=== PATIENT | female | born 1950 | race African-American/Black ===

== ENCOUNTER 2017-05-16 13:04 | Emergency (ER) | payer MEDICARE, MEDICAID ==
[~2017-05-16] VITALS: Ht 170.2 cm; Wt 84.0 kg
[~2017-05-16 13:04] MED LIST: AM10 PO; AMLO5TAB4 PO; ASPI-1159 PO; ATOR-2 PO; DIPH25CA83 PO; NITR0.4T49 SL
[2017-05-16 13:10] VITALS: BP 147/93
== END 2017-05-16 15:07 | disposition home or self-care (01) ==
LOC: ER 13:04
DX: S90.562A Insect bite (nonvenomous), left ankle, initial encounter (principal); L03.818 Cellulitis of other sites; I10 Essential (primary) hypertension; F17.200 Nicotine dependence, unspecified, uncomplicated; Z79.82 Long term (current) use of aspirin; Z90.710 Acquired absence of both cervix and uterus; Z90.49 Acquired absence of other specified parts of digestive tract; W57.XXXA Bitten or stung by nonvenomous insect and other nonvenomous arthropods, initial encounter; Y93.89 Activity, other specified; Y92.89 Other specified places as the place of occurrence of the external cause; Y99.8 Other external cause status
CPT/HCPCS: 99283

== ENCOUNTER 2017-10-09 13:05 | Inpatient (IN) | payer MEDICARE, MEDICAID ==
[~2017-10-09] VITALS: Ht 170.2 cm; Wt 89.5 kg
[~2017-10-09 13:05] MED LIST changes: -AMLO5TAB4 PO
[2017-10-09 15:23] LABS: BASOPHILS % 0.4 % (0.0-2.0); EOSINOPHILS % 1.4 % (0.0-5.0); HEMATOCRIT. 41.2 % (36.0-48.0); HEMOGLOBIN. 14.2 g/dL (12.0-16.0); LYMPHOCYTES % 27.6 % (20.0-50.0); MEAN CORPUSCULAR HEMOGLOBIN 28.6 pg (28.0-32.0); MEAN CORPUSCULAR VOLUME 82.7 fL (81.0-99.0); MEAN PLATELET VOLUME 7.6 fl (7.4-10.4); MONOCYTES % 5.9 % (2.0-8.0); NEUTROPHILS % 64.7 % (40.0-76.0); PLATELET 293 x1000/uL (130-400); RED BLOOD CELL COUNT 4.98 mill/uL (4.2-5.4); RED CELL DISTRIBUTION WIDTH 14.9 % (11.6-14.6)
[2017-10-09 15:29] LABS: CHLORIDE 104 mEq/L (98-107)
[2017-10-09 15:32] LABS: PROTHROMBIN TIME 10.8 sec (9.4-11.6)
[2017-10-09 15:37] LABS: CREATINE KINASE 132 IU/L (26-192)
[2017-10-09 15:40] LABS: CREATINE KINASE MB FRACTION 0.7 ng/mL (0.5-3.6)
[2017-10-09 21:10] VITALS: BP 142/82
[2017-10-09] MEDS: ACETAMINOPHEN 325MG TABLET PO PRN (21:27)
[2017-10-09] MEDS ORDERED: ONDANSETRON HCL 4MG/2ML VIAL IV PRN (21:30)
[2017-10-09] MEDS ORDERED: LORAZEPAM 2MG/ML CPJ IV PRN (21:30)
[2017-10-09] MEDS ORDERED: MAGNESIUM/ALUMINUM HYDROXIDE/SIMETHICONE 30ML UDC PO PRN (21:30)
[2017-10-09] MEDS: ASPIRIN 81MG EC TABLET PO SCH (21:44)
[2017-10-09 22:06] VITALS: BP 142/82
[2017-10-09] MEDS: DIPHENHYDRAMINE 25MG CAPSULE PO PRN (22:41)
[2017-10-09] MEDS: AMITRIPTYLINE 10MG TABLET PO SCH (22:41)
[2017-10-09] MEDS ORDERED: OMEP20CA10 PO (23:02)
[2017-10-09] MEDS ORDERED: AMLO2.5T45 PO (23:02)
[2017-10-09] MEDS ORDERED: SIMV20TA6 PO (23:02)
[2017-10-09] MEDS: ENOXAPARIN 40MG/0.4ML SYR SUBCUT SCH (23:41)
[2017-10-10] VITALS: BP 110/61
[2017-10-10 00:38] LABS: CREATINE KINASE MB FRACTION 0.6 ng/mL (0.5-3.6)
[2017-10-10 04:00] VITALS: BP 119/69
[2017-10-10 07:44] LABS: CREATINE KINASE MB FRACTION 0.7 ng/mL (0.5-3.6)
[2017-10-10 08:00] VITALS: BP 115/57
[2017-10-10 12:00] VITALS: BP 115/57
[2017-10-10] MEDS: ACETAMINOPHEN 325MG TABLET PO PRN (12:59)
[2017-10-10 16:09] LABS: CLARITY URINE CLEAR (CLEAR); COLOR URINE YELLOW (YELLOW); KETONES URINE NEGATIVE (NEGATIVE); LEUKOCYTE ESTERASE URINE NEGATIVE (NEGATIVE); NITRITE URINE NEGATIVE (NEGATIVE); OCCULT BLOOD URINE 1+ (NEGATIVE); PH URINE 6.5 (4.5-8.0); PROTEIN URINE NEGATIVE (NEGATIVE); SPECIFIC GRAVITY URINE 1.007 (1.005-1.030); UROBILINOGEN URINE 0.2 E.U./dL (0.2-1.0)
[2017-10-10 17:08] LABS: *AMPHETAMINES SCREEN URINE NEGATIVE (NEGATIVE); *BARBITURATES SCREEN URINE NEGATIVE (NEGATIVE); *BENZODIAZEPINES SCREEN URINE NEGATIVE (NEGATIVE); *COCAINE SCREEN URINE NEGATIVE (NEGATIVE); METHADONE URINE SCREEN NEGATIVE (NEGATIVE)
[2017-10-10 17:10] LABS: CANNABINOID URINE SCREEN NEGATIVE (NEGATIVE); OPIATES URINE SCREEN NEGATIVE (NEGATIVE); PHENCYCLIDINE URINE SCREEN NEGATIVE (NEGATIVE)
[2017-10-10] MEDS: NICOTINE 14MG PATCH TD SCH (18:08)
[2017-10-10 20:00] VITALS: BP 136/81
[2017-10-10] MEDS: AMITRIPTYLINE 10MG TABLET PO SCH (20:59)
[2017-10-10] MEDS: ASPIRIN 81MG EC TABLET PO SCH (20:59)
[2017-10-10] MEDS: HYDROMORPHONE HCL/PF 2MG/ML CPJ IV PRN (21:00)
[2017-10-10] MEDS: ENOXAPARIN 40MG/0.4ML SYR SUBCUT SCH (21:05)
[2017-10-10] MEDS: DIPHENHYDRAMINE 25MG CAPSULE PO PRN (23:42)
[2017-10-11] VITALS: BP 154/75
[2017-10-11] MEDS: IPRATROPIUM/ALBUTEROL 0.5-3(2.5)MG/3ML NEB HHN SCH ×4 (00:44→11:06)
[2017-10-11 04:00] VITALS: BP 136/84
[2017-10-11 07:23] LABS: BASOPHILS % 0.3 % (0.0-2.0); HEMATOCRIT. 39.6 % (36.0-48.0); HEMOGLOBIN. 13.3 g/dL (12.0-16.0); LYMPHOCYTES % 32.5 % (20.0-50.0); MEAN CORPUSCULAR HEMOGLOBIN 27.9 pg (28.0-32.0); MEAN CORPUSCULAR VOLUME 83.2 fL (81.0-99.0); MEAN PLATELET VOLUME 8.5 fl (7.4-10.4); MONOCYTES % 7.2 % (2.0-8.0); PLATELET 264 x1000/uL (130-400); RED BLOOD CELL COUNT 4.75 mill/uL (4.2-5.4); RED CELL DISTRIBUTION WIDTH 14.8 % (11.6-14.6)
[2017-10-11 07:44] LABS: CHLORIDE 104 mEq/L (98-107)
[2017-10-11 07:50] LABS: PHOSPHORUS 3.6 mg/dL (2.5-4.9)
[2017-10-11 08:00] VITALS: BP 138/82
[2017-10-11] MEDS: NICOTINE 14MG PATCH TD SCH (08:35)
[2017-10-11] MEDS: HYDROMORPHONE HCL/PF 2MG/ML CPJ IV PRN (08:44)
[2017-10-11 11:55] VITALS: BP 116/75
[2017-10-11] MEDS ORDERED: POTASSIUM CHLORIDE 20MEQ TABLET SR PO NR (12:00)
== END 2017-10-11 13:05 | disposition home or self-care (01) | DRG 206 ==
LOC: ER 13:05 → 5WST 14:40 → EDBEDREQ 16:54 → ENRESERV 18:24
PROVIDERS: ADMIT Internal Medicine Nephrology; ATTEND Internal Medicine Nephrology
DX: M94.0 Chondrocostal junction syndrome [Tietze] (principal); D32.9 Benign neoplasm of meninges, unspecified; E78.5 Hyperlipidemia, unspecified; E87.6 Hypokalemia; E66.9 Obesity, unspecified; I10 Essential (primary) hypertension; F17.210 Nicotine dependence, cigarettes, uncomplicated; Z96.659 Presence of unspecified artificial knee joint; Z90.710 Acquired absence of both cervix and uterus; I25.2 Old myocardial infarction; Z86.011 Personal history of benign neoplasm of the brain; Z86.73 Personal history of transient ischemic attack (TIA), and cerebral infarction without residual deficits; Z88.5 Allergy status to narcotic agent; Z88.8 Allergy status to other drugs, medicaments and biological substances; Z88.6 Allergy status to analgesic agent; Z91.041 Radiographic dye allergy status; Z79.82 Long term (current) use of aspirin; Z79.899 Other long term (current) drug therapy; Z90.49 Acquired absence of other specified parts of digestive tract; Z68.30 Body mass index [BMI] 30.0-30.9, adult
CPT/HCPCS: 36415; 70551; 71045; 80048; 80053; 80061; 80305; 81003; 82550; 82553; 83690; 83735; 83880; 84100; 84443; 84484; 85025; 85610; 85730; 93005; 93880; 94640; 99285; J1170; J1650; J7620; Q0163

== ENCOUNTER → 2018-01-07 | Outpatient (CLI) | payer MEDICARE, MEDICAID ==
[~2018-01-07] MED LIST changes: +AMLO2.5T45 PO; -ATOR-2 PO; +GADOBENATE DIMEGLUMINE 529 MG/ML 10ML IV ONE; +OMEP20CA10 PO; +SIMV20TA6 PO
== END | disposition home or self-care (01) ==
LOC: MRI 08:19
PROVIDERS: ATTEND Neurological Surgery
DX: Z12.31 Encounter for screening mammogram for malignant neoplasm of breast (principal); M47.892 Other spondylosis, cervical region; G31.9 Degenerative disease of nervous system, unspecified; M25.78 Osteophyte, vertebrae
CPT/HCPCS: 70553; 72141; 77067; A9577

== ENCOUNTER → 2018-04-17 | Outpatient (CLI) | payer MEDICARE, MEDICAID ==
[~2018-04-17] MED LIST changes: +GELATIN SPONGE,ABSORBABLE 12-7MM SPONGE ONE; +METH114C3 PO; +REGADENOSON 0.4 MG/5 ML IV ONE; +[UNRECOGNIZED DRUG - OTHER] PO
== END | disposition home or self-care (01) ==
LOC: MRI 16:01
PROVIDERS: ATTEND Neurological Surgery
DX: I67.82 Cerebral ischemia (principal); R22.0 Localized swelling, mass and lump, head
CPT/HCPCS: 70553; A9577

== ENCOUNTER → 2018-04-28 | Outpatient (CLI) | payer MEDICARE, MEDICAID ==
[~2018-04-28] MED LIST changes: -GADOBENATE DIMEGLUMINE 529 MG/ML 10ML IV ONE; -GELATIN SPONGE,ABSORBABLE 12-7MM SPONGE ONE; -REGADENOSON 0.4 MG/5 ML IV ONE
== END | disposition home or self-care (01) ==
LOC: RAD 10:58
PROVIDERS: ATTEND Internal Medicine Nephrology
DX: R06.02 Shortness of breath (principal); Z90.49 Acquired absence of other specified parts of digestive tract
CPT/HCPCS: 71046

== ENCOUNTER 2018-05-19 16:10 | Inpatient (IN) | payer MEDICARE, MEDICAID ==
[~2018-05-19] VITALS: Ht 152.1 cm; Wt 92.5 kg
[~2018-05-19 16:10] MED LIST changes: -METH114C3 PO
[2018-05-19] MEDS ORDERED: CLONIDINE 0.1MG TABLET PO PRN (18:30)
[2018-05-19] MEDS ORDERED: LORAZEPAM 1MG TABLET PO PRN (18:30)
[2018-05-19] MEDS ORDERED: BISACODYL 5MG TABLET PO PRN (18:30)
[2018-05-19] MEDS ORDERED: HYDRALAZINE HCL 10MG TABLET PO PRN (18:30)
[2018-05-19] MEDS ORDERED: IPRATROPIUM/ALBUTEROL 0.5-3(2.5)MG/3ML NEB HHN PRN (18:30)
[2018-05-19] MEDS ORDERED: MAGNESIUM/ALUMINUM HYDROXIDE/SIMETHICONE 30ML UDC PO PRN (18:30)
[2018-05-19] MEDS ORDERED: ONDANSETRON HCL 4MG TABLET PO PRN (18:30)
[2018-05-19 18:40] VITALS: BP 133/74
[2018-05-19] MEDS: ACETAMINOPHEN 325MG TABLET PO PRN (19:05)
[2018-05-19 19:27] LABS: CHLORIDE 105 mEq/L (98-107)
[2018-05-19 20:00] VITALS: BP 130/65
[2018-05-19] MEDS: AMLODIPINE 5MG TABLET PO SCH (21:21)
[2018-05-19] MEDS: LEVETIRACETAM 500MG TABLET PO SCH (21:22)
[2018-05-19] MEDS: PHENYTOIN SODIUM EXTENDED 100MG CAPSULE PO SCH (23:18)
[2018-05-19] MEDS: DEXAMETHASONE 4MG TABLET PO SCH (23:18)
[2018-05-20] MEDS: ACETAMINOPHEN 325MG TABLET PO PRN ×3 (01:18→20:18)
[2018-05-20 01:44] VITALS: BP 130/65
[2018-05-20] MEDS: DEXAMETHASONE 4MG TABLET PO SCH (06:21)
[2018-05-20] MEDS: PANTOPRAZOLE 40MG DR TABLET PO SCH (06:21)
[2018-05-20] MEDS: PHENYTOIN SODIUM EXTENDED 100MG CAPSULE PO SCH ×3 (06:21→21:54)
[2018-05-20 07:36] LABS: HEMATOCRIT. 36.3 % (36.0-48.0); HEMOGLOBIN. 12.1 g/dL (12.0-16.0); MEAN CORPUSCULAR HEMOGLOBIN 27.9 pg (28.0-32.0); MEAN CORPUSCULAR VOLUME 83.6 fL (81.0-99.0); MEAN PLATELET VOLUME 8.1 fl (7.4-10.4); PLATELET 247 x1000/uL (130-400); RED BLOOD CELL COUNT 4.34 mill/uL (4.2-5.4); RED CELL DISTRIBUTION WIDTH 14.9 % (11.6-14.6)
[2018-05-20 07:44] LABS: CHLORIDE 110 mEq/L (98-107)
[2018-05-20 07:54] VITALS: BP 117/65
[2018-05-20] MEDS: AMLODIPINE 5MG TABLET PO SCH ×2 (08:29→21:51)
[2018-05-20] MEDS: DOCUSATE SODIUM 100MG CAPSULE PO SCH ×2 (08:30→16:46)
[2018-05-20] MEDS: LEVETIRACETAM 500MG TABLET PO SCH ×2 (08:30→21:51)
[2018-05-20 09:55] LABS: PLATELET ESTIMATE NORMAL
[2018-05-20] MEDS ORDERED: DEXTROSE 50% WATER 50ML SYRINGE IV PRN (18:30)
[2018-05-20 20:00] VITALS: BP 117/53
[2018-05-20] MEDS: DIPHENHYDRAMINE 25MG CAPSULE PO PRN (20:19)
[2018-05-20] MEDS: BLOOD SUGAR DIAGNOSTIC STRIP TEST SCH (21:52)
[2018-05-20] MEDS: INSULIN LISPRO 100 UNITS/ML SUBCUT SCH (21:58)
[2018-05-21 04:29] LABS: CLARITY URINE CLEAR (CLEAR); COLOR URINE YELLOW (YELLOW); KETONES URINE NEGATIVE (NEGATIVE); LEUKOCYTE ESTERASE URINE NEGATIVE (NEGATIVE); NITRITE URINE NEGATIVE (NEGATIVE); OCCULT BLOOD URINE TRACE (NEGATIVE); PH URINE 5.5 (4.5-8.0); PROTEIN URINE NEGATIVE (NEGATIVE); SPECIFIC GRAVITY URINE 1.019 (1.005-1.030); UROBILINOGEN URINE 0.2 E.U./dL (0.2-1.0)
[2018-05-21] MEDS: ACETAMINOPHEN 325MG TABLET PO PRN ×2 (04:36→11:24)
[2018-05-21] MEDS: PHENYTOIN SODIUM EXTENDED 100MG CAPSULE PO SCH ×3 (05:49→21:23)
[2018-05-21] MEDS: BLOOD SUGAR DIAGNOSTIC STRIP TEST SCH ×4 (05:49→21:25)
[2018-05-21] MEDS: PANTOPRAZOLE 40MG DR TABLET PO SCH (06:00)
[2018-05-21] MEDS: INSULIN LISPRO 100 UNITS/ML SUBCUT SCH ×4 (06:01→21:29)
[2018-05-21] MEDS ORDERED: LORAZEPAM 0.5MG TABLET PO PRN (07:45)
[2018-05-21 08:00] VITALS: BP 151/81
[2018-05-21] MEDS: DOCUSATE SODIUM 100MG CAPSULE PO SCH ×2 (09:05→17:38)
[2018-05-21] MEDS: DEXAMETHASONE 4MG TABLET PO SCH (09:05)
[2018-05-21] MEDS: AMLODIPINE 5MG TABLET PO SCH ×2 (09:05→21:25)
[2018-05-21] MEDS: LEVETIRACETAM 500MG TABLET PO SCH ×2 (09:06→21:24)
[2018-05-21 09:18] LABS: HEMATOCRIT. 37.8 % (36.0-48.0); HEMOGLOBIN. 12.5 g/dL (12.0-16.0); MEAN CORPUSCULAR HEMOGLOBIN 27.9 pg (28.0-32.0); MEAN CORPUSCULAR VOLUME 84.5 fL (81.0-99.0); MEAN PLATELET VOLUME 7.8 fl (7.4-10.4); PLATELET 234 x1000/uL (130-400); RED BLOOD CELL COUNT 4.48 mill/uL (4.2-5.4); RED CELL DISTRIBUTION WIDTH 15.4 % (11.6-14.6)
[2018-05-21 09:53] LABS: CHLORIDE 107 mEq/L (98-107); HDL CHOLESTEROL 56 mg/dL (40-59); LDL CHOLESTEROL 80 mg/dL (5-100); PHOSPHORUS 2.5 mg/dL (2.5-4.9); TOTAL IRON BINDING CAPACITY 311 ug/dL (250-450)
[2018-05-21 14:03] LABS: FOLIC ACID (FOLATE) SERUM 3.2 ng/mL (>5.38)
[2018-05-21] MEDS: LACTULOSE 20G/30ML UDC PO SCH ×3 (14:03→21:00)
[2018-05-21 18:20] LABS: HEPATITIS B SURFACE ANTIGEN NEGATIVE
[2018-05-21 18:50] LABS: HEPATITIS A AB IGM NEGATIVE (NEGATIVE)
[2018-05-21 20:00] VITALS: BP 116/60
[2018-05-21 21:07] LABS: PLATELET ESTIMATE NORMAL
[2018-05-21] MEDS: IBUPROFEN 200MG TABLET PO PRN (21:24)
[2018-05-21] MEDS: POLYETHYLENE GLYCOL 3350 (17GM) 1 DOSE PACK PO SCH (21:25)
[2018-05-22] MEDS: PHENYTOIN SODIUM EXTENDED 100MG CAPSULE PO SCH ×2 (06:00→13:08)
[2018-05-22] MEDS: PANTOPRAZOLE 40MG DR TABLET PO SCH (06:00)
[2018-05-22] MEDS: BLOOD SUGAR DIAGNOSTIC STRIP TEST SCH ×4 (06:00→21:36)
[2018-05-22] MEDS: INSULIN LISPRO 100 UNITS/ML SUBCUT SCH ×4 (06:10→21:36)
[2018-05-22 07:37] LABS: HEMATOCRIT. 34.8 % (36.0-48.0); HEMOGLOBIN. 11.6 g/dL (12.0-16.0); MEAN CORPUSCULAR HEMOGLOBIN 28.2 pg (28.0-32.0); MEAN CORPUSCULAR VOLUME 84.6 fL (81.0-99.0); MEAN PLATELET VOLUME 7.7 fl (7.4-10.4); PLATELET 195 x1000/uL (130-400); RED BLOOD CELL COUNT 4.11 mill/uL (4.2-5.4); RED CELL DISTRIBUTION WIDTH 15.6 % (11.6-14.6)
[2018-05-22 07:45] LABS: CHLORIDE 107 mEq/L (98-107)
[2018-05-22 08:00] VITALS: BP 120/67
[2018-05-22] MEDS: LEVETIRACETAM 500MG TABLET PO SCH ×2 (08:50→21:26)
[2018-05-22] MEDS: DOCUSATE SODIUM 100MG CAPSULE PO SCH ×2 (08:50→17:12)
[2018-05-22] MEDS: DEXAMETHASONE 4MG TABLET PO SCH (08:50)
[2018-05-22] MEDS: AMLODIPINE 5MG TABLET PO SCH ×2 (08:51→21:27)
[2018-05-22] MEDS: IBUPROFEN 200MG TABLET PO PRN ×2 (12:23→21:28)
[2018-05-22 14:10] LABS: PLATELET ESTIMATE NORMAL
[2018-05-22 20:00] VITALS: BP 127/73
[2018-05-22] MEDS: FOLIC ACID 1MG TABLET PO SCH (21:27)
[2018-05-22] MEDS: POLYETHYLENE GLYCOL 3350 (17GM) 1 DOSE PACK PO SCH (21:27)
[2018-05-22] MEDS: DIPHENHYDRAMINE 25MG CAPSULE PO PRN (22:52)
[2018-05-23] MEDS: PANTOPRAZOLE 40MG DR TABLET PO SCH (06:25)
[2018-05-23] MEDS: INSULIN LISPRO 100 UNITS/ML SUBCUT SCH ×4 (06:26→21:12)
[2018-05-23] MEDS: BLOOD SUGAR DIAGNOSTIC STRIP TEST SCH ×4 (06:26→21:12)
[2018-05-23 08:00] VITALS: BP 125/77
[2018-05-23] MEDS: DOCUSATE SODIUM 100MG CAPSULE PO SCH ×2 (08:25→17:31)
[2018-05-23] MEDS: FOLIC ACID 1MG TABLET PO SCH (08:25)
[2018-05-23] MEDS: LEVETIRACETAM 500MG TABLET PO SCH ×2 (08:25→21:08)
[2018-05-23] MEDS: AMLODIPINE 5MG TABLET PO SCH ×2 (08:27→21:07)
[2018-05-23] MEDS: DEXAMETHASONE 4MG TABLET PO SCH (08:28)
[2018-05-23] MEDS: IBUPROFEN 200MG TABLET PO PRN ×2 (09:33→21:07)
[2018-05-23] MEDS: DIPHENHYDRAMINE 25MG CAPSULE PO PRN (15:06)
[2018-05-23 20:00] VITALS: BP 114/65
[2018-05-23] MEDS: POLYETHYLENE GLYCOL 3350 (17GM) 1 DOSE PACK PO SCH (21:07)
[2018-05-24 06:33] LABS: BASOPHILS % 0.3 % (0.0-2.0); EOSINOPHILS % 1.8 % (0.0-5.0); HEMATOCRIT. 36.4 % (36.0-48.0); HEMOGLOBIN. 11.9 g/dL (12.0-16.0); LYMPHOCYTES % 18.6 % (20.0-50.0); MEAN CORPUSCULAR HEMOGLOBIN 28.3 pg (28.0-32.0); MEAN CORPUSCULAR VOLUME 86.7 fL (81.0-99.0); NEUTROPHILS % 74.3 % (40.0-76.0); PLATELET 164 x1000/uL (130-400); RED CELL DISTRIBUTION WIDTH 16.7 % (11.6-14.6)
[2018-05-24] MEDS: BLOOD SUGAR DIAGNOSTIC STRIP TEST SCH ×4 (06:37→21:16)
[2018-05-24 06:44] LABS: CHLORIDE 108 mEq/L (98-107)
[2018-05-24 06:54] LABS: PHOSPHORUS 3.5 mg/dL (2.5-4.9)
[2018-05-24 08:00] VITALS: BP 132/58
[2018-05-24] MEDS: DOCUSATE SODIUM 100MG CAPSULE PO SCH ×2 (10:11→17:51)
[2018-05-24] MEDS: AMLODIPINE 5MG TABLET PO SCH ×2 (10:12→21:15)
[2018-05-24] MEDS: FOLIC ACID 1MG TABLET PO SCH (10:12)
[2018-05-24] MEDS: FAMOTIDINE 20MG TABLET PO SCH (10:12)
[2018-05-24] MEDS: DEXAMETHASONE 2MG TABLET PO SCH (10:12)
[2018-05-24] MEDS: LEVETIRACETAM 500MG TABLET PO SCH ×2 (10:12→21:15)
[2018-05-24] MEDS: IBUPROFEN 200MG TABLET PO PRN ×3 (10:13→17:29)
[2018-05-24] MEDS: INSULIN LISPRO 100 UNITS/ML SUBCUT SCH ×4 (10:14→21:32)
[2018-05-24] MEDS ORDERED: OXYCODONE HCL 5MG TABLET PO PRN ×2 (15:19→15:30)
[2018-05-24 20:00] VITALS: BP 118/80
[2018-05-24] MEDS: POLYETHYLENE GLYCOL 3350 (17GM) 1 DOSE PACK PO SCH (21:00)
[2018-05-24] MEDS: DIPHENHYDRAMINE 25MG CAPSULE PO PRN (21:16)
[2018-05-25] MEDS: BLOOD SUGAR DIAGNOSTIC STRIP TEST SCH ×4 (06:42→21:03)
[2018-05-25 07:15] LABS: BASOPHILS % 0.3 % (0.0-2.0); EOSINOPHILS % 2.2 % (0.0-5.0); HEMATOCRIT. 34.2 % (36.0-48.0); HEMOGLOBIN. 11.5 g/dL (12.0-16.0); LYMPHOCYTES % 16.9 % (20.0-50.0); MEAN CORPUSCULAR HEMOGLOBIN 28.6 pg (28.0-32.0); MEAN CORPUSCULAR VOLUME 85.3 fL (81.0-99.0); MEAN PLATELET VOLUME 7.9 fl (7.4-10.4); MONOCYTES % 5.7 % (2.0-8.0); NEUTROPHILS % 74.9 % (40.0-76.0); PLATELET 172 x1000/uL (130-400); RED BLOOD CELL COUNT 4.01 mill/uL (4.2-5.4); RED CELL DISTRIBUTION WIDTH 16.5 % (11.6-14.6)
[2018-05-25 07:22] LABS: CHLORIDE 109 mEq/L (98-107)
[2018-05-25 08:00] VITALS: BP 132/76
[2018-05-25] MEDS: FAMOTIDINE 20MG TABLET PO SCH (08:15)
[2018-05-25] MEDS: DEXAMETHASONE 2MG TABLET PO SCH (08:15)
[2018-05-25] MEDS: DOCUSATE SODIUM 100MG CAPSULE PO SCH ×2 (08:16→17:30)
[2018-05-25] MEDS: FOLIC ACID 1MG TABLET PO SCH (08:16)
[2018-05-25] MEDS: AMLODIPINE 5MG TABLET PO SCH ×2 (08:16→21:00)
[2018-05-25] MEDS: LEVETIRACETAM 500MG TABLET PO SCH ×2 (08:16→21:01)
[2018-05-25] MEDS: INSULIN LISPRO 100 UNITS/ML SUBCUT SCH ×4 (08:18→21:14)
[2018-05-25] MEDS: IBUPROFEN 200MG TABLET PO PRN (13:53)
[2018-05-25 20:00] VITALS: BP 111/73
[2018-05-25] MEDS: POLYETHYLENE GLYCOL 3350 (17GM) 1 DOSE PACK PO SCH (21:03)
[2018-05-25] MEDS: DIPHENHYDRAMINE 25MG CAPSULE PO PRN (21:03)
[2018-05-26 06:32] LABS: BASOPHILS % 0.7 % (0.0-2.0); EOSINOPHILS % 2.1 % (0.0-5.0); HEMATOCRIT. 34.8 % (36.0-48.0); HEMOGLOBIN. 11.6 g/dL (12.0-16.0); LYMPHOCYTES % 17.4 % (20.0-50.0); MEAN CORPUSCULAR HEMOGLOBIN 28.8 pg (28.0-32.0); MEAN PLATELET VOLUME 7.7 fl (7.4-10.4); MONOCYTES % 5.7 % (2.0-8.0); NEUTROPHILS % 74.1 % (40.0-76.0); PLATELET 166 x1000/uL (130-400); RED BLOOD CELL COUNT 4.05 mill/uL (4.2-5.4); RED CELL DISTRIBUTION WIDTH 16.1 % (11.6-14.6)
[2018-05-26] MEDS: IBUPROFEN 200MG TABLET PO PRN (06:33)
[2018-05-26 06:37] LABS: CHLORIDE 109 mEq/L (98-107)
[2018-05-26] MEDS: INSULIN LISPRO 100 UNITS/ML SUBCUT SCH ×4 (06:37→21:45)
[2018-05-26] MEDS: BLOOD SUGAR DIAGNOSTIC STRIP TEST SCH ×4 (06:37→21:37)
[2018-05-26] MEDS ORDERED: LORAZEPAM 0.5MG TABLET PO PRN (07:45)
[2018-05-26 08:29] VITALS: BP 165/69
[2018-05-26] MEDS: FOLIC ACID 1MG TABLET PO SCH (08:32)
[2018-05-26] MEDS: AMLODIPINE 5MG TABLET PO SCH ×2 (08:33→21:37)
[2018-05-26] MEDS: DEXAMETHASONE 2MG TABLET PO SCH (08:33)
[2018-05-26] MEDS: LEVETIRACETAM 500MG TABLET PO SCH ×2 (08:33→21:38)
[2018-05-26] MEDS: DOCUSATE SODIUM 100MG CAPSULE PO SCH ×2 (08:33→16:48)
[2018-05-26] MEDS: FAMOTIDINE 20MG TABLET PO SCH (08:33)
[2018-05-26] MEDS: CIPROFLOXACIN 0.3% OPHTH SOLN 2.5ML BOTHEYE SCH ×2 (17:43→21:37)
[2018-05-26] MEDS: DIPHENHYDRAMINE 25MG CAPSULE PO PRN (17:53)
[2018-05-26 20:00] VITALS: BP 127/86
[2018-05-26] MEDS: POLYETHYLENE GLYCOL 3350 (17GM) 1 DOSE PACK PO SCH (21:36)
[2018-05-26] MEDS: INSULIN GLARGINE UD 100 UNITS/ML SYR SUBCUT SCH (21:45)
[2018-05-27] MEDS: IBUPROFEN 200MG TABLET PO PRN ×2 (03:14→15:03)
[2018-05-27] MEDS: BLOOD SUGAR DIAGNOSTIC STRIP TEST SCH ×4 (06:29→21:23)
[2018-05-27] MEDS: INSULIN LISPRO 100 UNITS/ML SUBCUT SCH ×4 (06:37→21:39)
[2018-05-27 07:27] LABS: BASOPHILS % 0.5 % (0.0-2.0); EOSINOPHILS % 1.9 % (0.0-5.0); HEMATOCRIT. 35.7 % (36.0-48.0); HEMOGLOBIN. 11.7 g/dL (12.0-16.0); LYMPHOCYTES % 18.7 % (20.0-50.0); MEAN CORPUSCULAR HEMOGLOBIN 28.3 pg (28.0-32.0); MEAN PLATELET VOLUME 7.8 fl (7.4-10.4); MONOCYTES % 6.5 % (2.0-8.0); NEUTROPHILS % 72.4 % (40.0-76.0); PLATELET 144 x1000/uL (130-400); RED BLOOD CELL COUNT 4.15 mill/uL (4.2-5.4); RED CELL DISTRIBUTION WIDTH 16.5 % (11.6-14.6)
[2018-05-27 07:37] LABS: CHLORIDE 109 mEq/L (98-107)
[2018-05-27 08:00] VITALS: BP 110/77
[2018-05-27] MEDS: CIPROFLOXACIN 0.3% OPHTH SOLN 2.5ML BOTHEYE SCH ×4 (09:54→21:22)
[2018-05-27] MEDS: FAMOTIDINE 20MG TABLET PO SCH (09:55)
[2018-05-27] MEDS: LEVETIRACETAM 500MG TABLET PO SCH (09:55)
[2018-05-27] MEDS: FOLIC ACID 1MG TABLET PO SCH (09:55)
[2018-05-27] MEDS: DOCUSATE SODIUM 100MG CAPSULE PO SCH ×2 (09:55→17:14)
[2018-05-27] MEDS: AMLODIPINE 5MG TABLET PO SCH ×2 (10:03→21:23)
[2018-05-27] MEDS: LAMOTRIGINE 25MG TABLET PO SCH ×2 (15:00→21:22)
[2018-05-27 20:00] VITALS: BP 126/76
[2018-05-27] MEDS: PETROLATUM,WHITE OPHTH OINT 3.5GM BOTHEYE SCH (21:22)
[2018-05-27] MEDS: POLYETHYLENE GLYCOL 3350 (17GM) 1 DOSE PACK PO SCH (21:37)
[2018-05-27] MEDS: INSULIN GLARGINE UD 100 UNITS/ML SYR SUBCUT SCH (21:39)
[2018-05-27] MEDS: DIPHENHYDRAMINE 25MG CAPSULE PO PRN (21:54)
[2018-05-28] MEDS: BLOOD SUGAR DIAGNOSTIC STRIP TEST SCH ×2 (06:03→11:59)
[2018-05-28] MEDS: INSULIN LISPRO 100 UNITS/ML SUBCUT SCH ×2 (06:03→13:18)
[2018-05-28 06:46] LABS: BASOPHILS % 0.7 % (0.0-2.0); EOSINOPHILS % 2.4 % (0.0-5.0); HEMOGLOBIN. 11.7 g/dL (12.0-16.0); LYMPHOCYTES % 19.2 % (20.0-50.0); MEAN CORPUSCULAR VOLUME 86.7 fL (81.0-99.0); MEAN PLATELET VOLUME 7.8 fl (7.4-10.4); MONOCYTES % 5.6 % (2.0-8.0); NEUTROPHILS % 72.1 % (40.0-76.0); PLATELET 140 x1000/uL (130-400); RED BLOOD CELL COUNT 4.03 mill/uL (4.2-5.4); RED CELL DISTRIBUTION WIDTH 16.9 % (11.6-14.6)
[2018-05-28 07:13] LABS: CHLORIDE 111 mEq/L (98-107)
[2018-05-28 08:00] VITALS: BP 114/60
[2018-05-28] MEDS: DOCUSATE SODIUM 100MG CAPSULE PO SCH (08:19)
[2018-05-28] MEDS: PETROLATUM,WHITE OPHTH OINT 3.5GM BOTHEYE SCH (08:20)
[2018-05-28] MEDS: FAMOTIDINE 20MG TABLET PO SCH (08:20)
[2018-05-28] MEDS: FOLIC ACID 1MG TABLET PO SCH (08:20)
[2018-05-28] MEDS: LAMOTRIGINE 25MG TABLET PO SCH (08:20)
[2018-05-28] MEDS: AMLODIPINE 5MG TABLET PO SCH (08:20)
[2018-05-28] MEDS: CIPROFLOXACIN 0.3% OPHTH SOLN 2.5ML BOTHEYE SCH ×2 (08:20→13:20)
[2018-05-28 11:46] VITALS: BP 114/60
[2018-05-29 19:07] LABS: 25-HYDROXY VITAMIN D3 12 ng/mL (.)
== END 2018-05-28 17:03 | disposition home health service (06) | DRG 64 ==
PROVIDERS: ADMIT Physical Medicine & Rehabilitation Spinal Cord Injury Medicine; ATTEND Internal Medicine Nephrology
DX: I63.9 Cerebral infarction, unspecified (principal); I61.9 Nontraumatic intracerebral hemorrhage, unspecified; D32.0 Benign neoplasm of cerebral meninges; R47.01 Aphasia; R13.10 Dysphagia, unspecified; R53.81 Other malaise; G40.909 Epilepsy, unspecified, not intractable, without status epilepticus; R26.9 Unspecified abnormalities of gait and mobility; D64.9 Anemia, unspecified; D72.829 Elevated white blood cell count, unspecified; I10 Essential (primary) hypertension; R47.1 Dysarthria and anarthria; E11.65 Type 2 diabetes mellitus with hyperglycemia; E53.8 Deficiency of other specified B group vitamins; R16.2 Hepatomegaly with splenomegaly, not elsewhere classified; H04.129 Dry eye syndrome of unspecified lacrimal gland; F06.31 Mood disorder due to known physiological condition with depressive features; F06.8 Other specified mental disorders due to known physiological condition; R51 Headache; Z82.49 Family history of ischemic heart disease and other diseases of the circulatory system; Z88.6 Allergy status to analgesic agent; Z88.8 Allergy status to other drugs, medicaments and biological substances; Z91.013 Allergy to seafood; Z98.890 Other specified postprocedural states; Z90.49 Acquired absence of other specified parts of digestive tract; Z91.041 Radiographic dye allergy status
CPT/HCPCS: 36415; 76700; 80061; 80076; 80185; 82140; 82248; 82306; 82607; 82728; 82746; 82962; 83540; 83550; 83735; 84100; 84134; 84443; 84630; 86705; 86709; 86803; 87340; 92523; 92610; 93970; 97110; 97112; 97116; 97162; 97167; 97530; 97535; G0515; J1815; J8540; Q0163

== ENCOUNTER 2018-05-30 16:06 | Inpatient (IN) | payer MEDICARE, MEDICAID ==
[~2018-05-30] VITALS: Ht 170.2 cm; Wt 84.4 kg
[~2018-05-30 16:06] MED LIST changes: -DIPH25CA83 PO; -NITR0.4T49 SL; -[UNRECOGNIZED DRUG - OTHER] PO
[2018-05-30 18:35] LABS: CHLORIDE 109 mEq/L (98-107)
[2018-05-30 18:37] LABS: BASOPHILS % 0.8 % (0.0-2.0); EOSINOPHILS % 3.4 % (0.0-5.0); HEMATOCRIT. 36.5 % (36.0-48.0); HEMOGLOBIN. 12.2 g/dL (12.0-16.0); LYMPHOCYTES % 26.4 % (20.0-50.0); MEAN CORPUSCULAR HEMOGLOBIN 28.9 pg (28.0-32.0); MEAN CORPUSCULAR VOLUME 86.5 fL (81.0-99.0); MEAN PLATELET VOLUME 8.2 fl (7.4-10.4); NEUTROPHILS % 63.4 % (40.0-76.0); PLATELET 160 x1000/uL (130-400); RED BLOOD CELL COUNT 4.22 mill/uL (4.2-5.4); RED CELL DISTRIBUTION WIDTH 16.7 % (11.6-14.6)
[2018-05-30] MEDS ORDERED: HYDROCODONE/ACETAMINOPHEN 5/325MG TABLET PO ONE (19:15)
[2018-05-30] MEDS ORDERED: ASPIRIN 325MG EC TABLET PO ONE (19:30)
[2018-05-30] MEDS ORDERED: ONDANSETRON HCL 4MG/2ML INJ IV STA (21:09)
[2018-05-30] MEDS ORDERED: MORPHINE SULFATE 4 MG/ML CPJ (NOT FOR IM USE) IV STA (21:09)
[2018-05-30] MEDS ORDERED: ONDANSETRON HCL 4MG/2ML INJ IV PRN (22:15)
[2018-05-30] MEDS ORDERED: ACETAMINOPHEN 325MG TABLET PO PRN (22:15)
[2018-05-30] MEDS ORDERED: MAGNESIUM/ALUMINUM HYDROXIDE/SIMETHICONE 30ML UDC PO PRN (22:15)
[2018-05-30] MEDS ORDERED: CLONIDINE 0.1MG TABLET PO PRN (22:15)
[2018-05-31] MEDS ORDERED: MORPHINE SULFATE 4 MG/ML CPJ (NOT FOR IM USE) IV STA (01:37)
[2018-05-31] MEDS ORDERED: ONDANSETRON HCL 4MG/2ML INJ IV STA (01:37)
[2018-05-31] MEDS: OXYCODONE HCL 5MG TABLET PO PRN ×2 (02:41→23:14)
[2018-05-31 06:15] LABS: BASOPHILS % 0.6 % (0.0-2.0); EOSINOPHILS % 2.6 % (0.0-5.0); HEMATOCRIT. 35.2 % (36.0-48.0); HEMOGLOBIN. 11.6 g/dL (12.0-16.0); LYMPHOCYTES % 24.4 % (20.0-50.0); MEAN CORPUSCULAR HEMOGLOBIN 28.6 pg (28.0-32.0); MEAN CORPUSCULAR VOLUME 86.8 fL (81.0-99.0); MONOCYTES % 6.6 % (2.0-8.0); NEUTROPHILS % 65.8 % (40.0-76.0); PLATELET 144 x1000/uL (130-400); RED BLOOD CELL COUNT 4.05 mill/uL (4.2-5.4); RED CELL DISTRIBUTION WIDTH 16.9 % (11.6-14.6)
[2018-05-31 06:22] LABS: CHLORIDE 108 mEq/L (98-107)
[2018-05-31 06:28] LABS: LDL CHOLESTEROL 109 mg/dL (5-100)
[2018-05-31 06:30] LABS: HDL CHOLESTEROL 49 mg/dL (40-59)
[2018-05-31] MEDS: DOCUSATE SODIUM 100MG CAPSULE PO SCH ×2 (10:30→17:00)
[2018-05-31] MEDS: MORPHINE SULFATE 4 MG/ML CPJ (NOT FOR IM USE) IV PRN ×2 (10:43→14:50)
[2018-05-31 11:00] VITALS: BP 128/84
[2018-05-31 12:00] VITALS: BP 128/73
[2018-05-31 16:00] VITALS: BP 140/80
[2018-05-31] MEDS: LAMOTRIGINE 25MG TABLET PO SCH (18:29)
[2018-05-31 20:00] VITALS: BP 120/70
[2018-05-31] MEDS: AMITRIPTYLINE 10MG TABLET PO SCH (22:44)
[2018-06-01] VITALS: BP 141/79
[2018-06-01 04:00] VITALS: BP 141/70
[2018-06-01 06:57] LABS: BASOPHILS % 0.7 % (0.0-2.0); EOSINOPHILS % 3.4 % (0.0-5.0); HEMATOCRIT. 35.8 % (36.0-48.0); HEMOGLOBIN. 11.9 g/dL (12.0-16.0); MEAN CORPUSCULAR HEMOGLOBIN 28.6 pg (28.0-32.0); MEAN CORPUSCULAR VOLUME 85.8 fL (81.0-99.0); MONOCYTES % 5.4 % (2.0-8.0); NEUTROPHILS % 62.5 % (40.0-76.0); PLATELET 162 x1000/uL (130-400); RED BLOOD CELL COUNT 4.17 mill/uL (4.2-5.4); RED CELL DISTRIBUTION WIDTH 16.9 % (11.6-14.6)
[2018-06-01 07:40] LABS: CHLORIDE 109 mEq/L (98-107)
[2018-06-01] MEDS: LAMOTRIGINE 25MG TABLET PO SCH (08:25)
[2018-06-01] MEDS: DOCUSATE SODIUM 100MG CAPSULE PO SCH ×2 (08:25→17:13)
[2018-06-01] MEDS ORDERED: REGADENOSON 0.4 MG/5 ML IV ONE (09:30)
[2018-06-01] MEDS ORDERED: LEVOFLOXACIN 500MG PREMIX 100 ML IV SCH (11:00)
[2018-06-01] MEDS: ASPIRIN 81MG EC TABLET PO SCH (11:32)
[2018-06-01 12:00] VITALS: BP 118/75
[2018-06-01 16:00] VITALS: BP 112/63
[2018-06-01] MEDS: IBUPROFEN 200MG TABLET PO PRN (16:41)
[2018-06-01 20:00] VITALS: BP 110/60
[2018-06-01] MEDS: AMITRIPTYLINE 10MG TABLET PO SCH (20:17)
[2018-06-01] MEDS: MORPHINE SULFATE 4 MG/ML CPJ (NOT FOR IM USE) IV PRN (20:18)
[2018-06-02] VITALS: BP 119/81
[2018-06-02 04:00] VITALS: BP 137/81
[2018-06-02 08:00] VITALS: BP 137/82
[2018-06-02] MEDS: ASPIRIN 81MG EC TABLET PO SCH (08:21)
[2018-06-02] MEDS: DOCUSATE SODIUM 100MG CAPSULE PO SCH ×2 (08:21→16:59)
[2018-06-02] MEDS: LAMOTRIGINE 25MG TABLET PO SCH (09:00)
[2018-06-02] MEDS ORDERED: REGADENOSON 0.4 MG/5 ML IV ONE (10:15)
[2018-06-02] MEDS: LEVOFLOXACIN 500MG PREMIX 100 ML IV SCH (12:47)
[2018-06-02] MEDS: IBUPROFEN 200MG TABLET PO PRN (12:56)
[2018-06-02 16:48] LABS: BASOPHILS % 0.7 % (0.0-2.0); HEMATOCRIT. 33.8 % (36.0-48.0); HEMOGLOBIN. 11.4 g/dL (12.0-16.0); LYMPHOCYTES % 25.1 % (20.0-50.0); MEAN CORPUSCULAR HEMOGLOBIN 28.7 pg (28.0-32.0); MEAN CORPUSCULAR VOLUME 85.2 fL (81.0-99.0); MEAN PLATELET VOLUME 8.1 fl (7.4-10.4); MONOCYTES % 6.2 % (2.0-8.0); PLATELET 213 x1000/uL (130-400); RED BLOOD CELL COUNT 3.97 mill/uL (4.2-5.4); RED CELL DISTRIBUTION WIDTH 16.6 % (11.6-14.6)
[2018-06-02 17:06] LABS: CHLORIDE 109 mEq/L (98-107)
[2018-06-02 17:12] LABS: TOTAL IRON BINDING CAPACITY 254 ug/dL (250-450)
[2018-06-02 17:25] LABS: GAMMA GLUTAMYL TRANSPEPTIDASE 247 IU/L (7-32)
[2018-06-02 17:32] LABS: HEPATITIS B SURFACE ANTIGEN NEGATIVE
[2018-06-02] MEDS ORDERED: GADOBENATE DIMEGLUMINE 529 MG/ML 10ML IV ONE (17:32)
[2018-06-02 18:02] LABS: HEPATITIS A AB IGM NEGATIVE (NEGATIVE)
[2018-06-02] MEDS: LEVETIRACETAM 250MG TABLET PO SCH ×2 (18:20→21:37)
[2018-06-02 20:09] VITALS: BP 121/76
[2018-06-02 21:02] LABS: INR 1.1; PARTIAL THROMBOPLASTIN TIME 27.7 sec (23.4-31.0); PROTHROMBIN TIME 10.8 sec (9.1-11.1)
[2018-06-02] MEDS: AMITRIPTYLINE 10MG TABLET PO SCH (21:31)
[2018-06-02] MEDS: MORPHINE SULFATE 4 MG/ML CPJ (NOT FOR IM USE) IV PRN (21:39)
[2018-06-03] VITALS: BP 144/72
[2018-06-03] MEDS ORDERED: DIPHENHYDRAMINE 25MG CAPSULE PO PRN (00:15)
[2018-06-03 04:00] VITALS: BP 129/81
[2018-06-03 04:31] VITALS: BP 129/81
[2018-06-03 08:36] VITALS: BP 139/76
[2018-06-03] MEDS: DOCUSATE SODIUM 100MG CAPSULE PO SCH ×2 (09:00→09:46)
[2018-06-03] MEDS: LEVETIRACETAM 250MG TABLET PO SCH (09:46)
[2018-06-03] MEDS: ASPIRIN 81MG EC TABLET PO SCH (09:46)
[2018-06-03 09:59] LABS: BASOPHILS % 1.2 % (0.0-2.0); EOSINOPHILS % 5.6 % (0.0-5.0); HEMATOCRIT. 36.7 % (36.0-48.0); HEMOGLOBIN. 12.2 g/dL (12.0-16.0); LYMPHOCYTES % 25.2 % (20.0-50.0); MEAN CORPUSCULAR HEMOGLOBIN 28.9 pg (28.0-32.0); MEAN CORPUSCULAR VOLUME 86.5 fL (81.0-99.0); MEAN PLATELET VOLUME 9.1 fl (7.4-10.4); MONOCYTES % 5.1 % (2.0-8.0); NEUTROPHILS % 62.9 % (40.0-76.0); PLATELET 287 x1000/uL (130-400); RED BLOOD CELL COUNT 4.24 mill/uL (4.2-5.4); RED CELL DISTRIBUTION WIDTH 17.2 % (11.6-14.6)
[2018-06-03 12:39] VITALS: BP 137/83
[2018-06-03] MEDS: LEVOFLOXACIN 500MG PREMIX 100 ML IV SCH (13:52)
[2018-06-03 14:57] LABS: CHLORIDE 108 mEq/L (98-107)
[2018-06-03 15:32] VITALS: BP 137/83
[2018-06-03] MEDS: IBUPROFEN 200MG TABLET PO PRN (15:32)
[2018-06-04] MEDS ORDERED: LEVOFLOXACIN 500MG TABLET PO SCH (11:00)
== END 2018-06-03 16:15 | disposition home or self-care (01) | DRG 638 ==
LOC: ER 18:38 → 8WST 19:54 → EDBEDREQTM 19:56 → EDBEDREQ 19:56 → SUPCPDRO 21:57 → ENRESERV 05-31 09:05
PROVIDERS: ADMIT Internal Medicine Nephrology; ATTEND Internal Medicine Nephrology
DX: E09.65 Drug or chemical induced diabetes mellitus with hyperglycemia (principal); E44.1 Mild protein-calorie malnutrition; E87.0 Hyperosmolality and hypernatremia; R47.01 Aphasia; E44.0 Moderate protein-calorie malnutrition; R07.89 Other chest pain; E11.65 Type 2 diabetes mellitus with hyperglycemia; D32.0 Benign neoplasm of cerebral meninges; T38.0X5A Adverse effect of glucocorticoids and synthetic analogues, initial encounter; D64.9 Anemia, unspecified; D72.829 Elevated white blood cell count, unspecified; Z96.659 Presence of unspecified artificial knee joint; E78.5 Hyperlipidemia, unspecified; F17.200 Nicotine dependence, unspecified, uncomplicated; R26.9 Unspecified abnormalities of gait and mobility; G40.909 Epilepsy, unspecified, not intractable, without status epilepticus; H02.401 Unspecified ptosis of right eyelid; I11.9 Hypertensive heart disease without heart failure; I44.0 Atrioventricular block, first degree; K76.0 Fatty (change of) liver, not elsewhere classified; Z79.82 Long term (current) use of aspirin; Z82.49 Family history of ischemic heart disease and other diseases of the circulatory system; Z86.011 Personal history of benign neoplasm of the brain; Z86.73 Personal history of transient ischemic attack (TIA), and cerebral infarction without residual deficits; Z88.5 Allergy status to narcotic agent; Z90.49 Acquired absence of other specified parts of digestive tract; Z90.710 Acquired absence of both cervix and uterus; Z88.8 Allergy status to other drugs, medicaments and biological substances; Z88.6 Allergy status to analgesic agent; Z91.041 Radiographic dye allergy status; Z91.013 Allergy to seafood; Z68.29 Body mass index [BMI] 29.0-29.9, adult; Y92.89 Other specified places as the place of occurrence of the external cause
CPT/HCPCS: 36415; 71045; 74183; 76700; 78452; 80048; 80061; 80076; 80307; 82390; 82728; 82962; 82977; 83036; 83540; 83550; 83605; 83735; 83880; 84484; 86038; 86705; 86709; 86803; 87340; 92523; 93005; 93017; 93306; 93970; 96374; 96375; 96376; 97162; 97166; 99285; A9500; A9577; C1893; J1956; J2270; J2405; J2785; J7050; Q0163

== ENCOUNTER 2018-07-09 12:54 | Inpatient (IN) | payer MEDICARE, MEDICAID ==
[~2018-07-09] VITALS: Ht 167.6 cm; Wt 88.0 kg
[2018-07-09 15:26] LABS: BASOPHILS % 0.4 % (0.0-2.0); EOSINOPHILS % 2.4 % (0.0-5.0); HEMATOCRIT. 40.7 % (36.0-48.0); HEMOGLOBIN. 13.7 g/dL (12.0-16.0); LYMPHOCYTES % 21.6 % (20.0-50.0); MEAN CORPUSCULAR HEMOGLOBIN 27.2 pg (28.0-32.0); MEAN CORPUSCULAR VOLUME 80.9 fL (81.0-99.0); MEAN PLATELET VOLUME 8.5 fl (7.4-10.4); MONOCYTES % 6.8 % (2.0-8.0); NEUTROPHILS % 68.8 % (40.0-76.0); PLATELET 290 x1000/uL (130-400); RED BLOOD CELL COUNT 5.04 mill/uL (4.2-5.4)
[2018-07-09 15:30] LABS: CHLORIDE 98 mEq/L (98-107)
[2018-07-09 15:32] LABS: PROTHROMBIN TIME 10.2 sec (9.1-11.1)
[2018-07-09] MEDS ORDERED: LORAZEPAM 2MG/ML CPJ IV ONE (16:00)
[2018-07-09] MEDS ORDERED: SODIUM CHLORIDE 0.9% 1,000 ML IV ONE (16:15)
[2018-07-09] MEDS ORDERED: INSULIN REGULAR (HUMULIN R) 300UNITS/3ML SUBCUT ONE (16:15)
[2018-07-09] MEDS ORDERED: LEVETIRACETAM 1000MG/100ML 100 ML IV ONE (17:15)
[2018-07-09 21:00] VITALS: BP 129/79
[2018-07-09] MEDS ORDERED: DEXTROSE 50% WATER 50ML SYRINGE IV PRN (22:30)
[2018-07-09] MEDS ORDERED: ENOXAPARIN 40MG/0.4ML SYR SUBCUT SCH (23:00)
[2018-07-09] MEDS ORDERED: HYDROMORPHONE HCL/PF 2MG/ML CPJ IV PRN ×2 (23:00→23:45)
[2018-07-09] MEDS ORDERED: ACETAMINOPHEN 325MG TABLET PO PRN (23:00)
[2018-07-09] MEDS ORDERED: ONDANSETRON HCL 4MG/2ML INJ IV PRN (23:00)
[2018-07-09] MEDS ORDERED: HYDR-4005 PO (23:26)
[2018-07-09] MEDS ORDERED: MEDICATION NOT ON FORMULARY EA (Hydrocodone Bit/Acetaminophen (Hydrocodon-Acetaminoph 7. PO PRN (23:30)
[2018-07-09] MEDS: INSULIN LISPRO 100 UNITS/ML SUBCUT SCH (23:37)
[2018-07-09] MEDS: BLOOD SUGAR DIAGNOSTIC STRIP TEST SCH (23:38)
[2018-07-10] MEDS: HYDROCODONE/APAP 7.5/325MG 1 TAB TABLET PO PRN (00:23)
[2018-07-10 02:19] VITALS: BP 118/72
[2018-07-10] MEDS ORDERED: AMIT10TA6 PO (03:03)
[2018-07-10] MEDS ORDERED: DOCU-150 PO (03:12)
[2018-07-10] MEDS ORDERED: HYDR25TA PO (03:12)
[2018-07-10] MEDS ORDERED: DIPH28.34 TP (03:12)
[2018-07-10] MEDS ORDERED: LEVE250T2 PO ×2 (03:12→03:40)
[2018-07-10] MEDS ORDERED: IBUP-1653 PO (03:12)
[2018-07-10] MEDS ORDERED: LAMO50TA3 PO (03:12)
[2018-07-10] MEDS ORDERED: DIPH25CA83 PO (03:12)
[2018-07-10] MEDS ORDERED: AMLO10TA80 PO (03:28)
[2018-07-10] MEDS ORDERED: DIPHENHYDRAMINE HCL TP PRN (03:30)
[2018-07-10] MEDS ORDERED: DIPHENHYDRAMINE 25MG CAPSULE PO PRN (03:30)
[2018-07-10] MEDS ORDERED: IBUPROFEN 200 MG PO PRN (03:30)
[2018-07-10] MEDS ORDERED: [UNRECOGNIZED DRUG - OTHER] TP PRN (03:30)
[2018-07-10] MEDS ORDERED: ZINC ACET TP PRN (03:30)
[2018-07-10 04:00] VITALS: BP 122/72
[2018-07-10] MEDS ORDERED: DIPHENHYDRAMINE HCL/ZINC ACET 28 GM CREAM TOP PRN (04:15)
[2018-07-10] MEDS: LORAZEPAM 2MG/ML CPJ IV PRN ×3 (04:24→22:03)
[2018-07-10] MEDS: BLOOD SUGAR DIAGNOSTIC STRIP TEST SCH ×4 (06:19→21:00)
[2018-07-10] MEDS: INSULIN LISPRO 100 UNITS/ML SUBCUT SCH ×4 (07:06→21:47)
[2018-07-10 08:00] VITALS: BP 113/82
[2018-07-10] MEDS: SODIUM CHLORIDE 0.9% 1,000 ML IV SCH (08:44)
[2018-07-10] MEDS: OMEPRAZOLE 20MG CAPSULE EXTENDED RELEASE PO SCH (08:45)
[2018-07-10] MEDS: LEVETIRACETAM 500MG/5ML CUP PO SCH ×2 (08:45→21:46)
[2018-07-10] MEDS: DOCUSATE SODIUM 100MG CAPSULE PO SCH ×2 (08:46→17:15)
[2018-07-10] MEDS: ASPIRIN 81MG TABLET PO SCH (08:46)
[2018-07-10] MEDS: HYDROCHLOROTHIAZIDE 25MG TABLET PO SCH (08:46)
[2018-07-10] MEDS ORDERED: MEDICATION NOT ON FORMULARY EA (Docusate Sodium 100 MG) PO SCH (09:00)
[2018-07-10] MEDS ORDERED: LAMOTRIGINE 25MG TABLET PO SCH (09:00)
[2018-07-10] MEDS ORDERED: LEVETIRACETAM 250MG TABLET PO SCH (09:00)
[2018-07-10 09:41] LABS: BASOPHILS % 0.4 % (0.0-2.0); EOSINOPHILS % 3.4 % (0.0-5.0); HEMATOCRIT. 39.3 % (36.0-48.0); HEMOGLOBIN. 13.3 g/dL (12.0-16.0); LYMPHOCYTES % 28.2 % (20.0-50.0); MEAN CORPUSCULAR HEMOGLOBIN 27.1 pg (28.0-32.0); MEAN CORPUSCULAR VOLUME 80.1 fL (81.0-99.0); MEAN PLATELET VOLUME 8.7 fl (7.4-10.4); MONOCYTES % 7.2 % (2.0-8.0); NEUTROPHILS % 60.8 % (40.0-76.0); PLATELET 284 x1000/uL (130-400); RED BLOOD CELL COUNT 4.91 mill/uL (4.2-5.4); RED CELL DISTRIBUTION WIDTH 15.8 % (11.6-14.6)
[2018-07-10 09:59] LABS: CHLORIDE 102 mEq/L (98-107)
[2018-07-10 12:00] VITALS: BP 116/68
[2018-07-10 13:26] LABS: CLARITY URINE CLEAR (CLEAR); COLOR URINE YELLOW (YELLOW); KETONES URINE NEGATIVE (NEGATIVE); LEUKOCYTE ESTERASE URINE NEGATIVE (NEGATIVE); NITRITE URINE NEGATIVE (NEGATIVE); OCCULT BLOOD URINE NEGATIVE (NEGATIVE); PH URINE 6.5 (4.5-8.0); PROTEIN URINE NEGATIVE (NEGATIVE); SPECIFIC GRAVITY URINE 1.038 (1.005-1.030)
[2018-07-10 16:00] VITALS: BP 122/77
[2018-07-10] MEDS: METFORMIN HCL 500MG TABLET PO SCH (17:15)
[2018-07-10 20:00] VITALS: BP 134/81
[2018-07-10] MEDS: AMITRIPTYLINE 10MG TABLET PO SCH (21:46)
[2018-07-10] MEDS: ENOXAPARIN 30MG/0.3ML SYR SUBCUT SCH (21:47)
[2018-07-11] VITALS: BP 115/76
[2018-07-11] MEDS: SODIUM CHLORIDE 0.9% 1,000 ML IV SCH ×2 (03:45→22:16)
[2018-07-11 04:00] VITALS: BP 111/69
[2018-07-11] MEDS: BLOOD SUGAR DIAGNOSTIC STRIP TEST SCH ×4 (06:08→21:00)
[2018-07-11 06:12] LABS: BASOPHILS % 0.3 % (0.0-2.0); EOSINOPHILS % 2.8 % (0.0-5.0); HEMATOCRIT. 38.4 % (36.0-48.0); MEAN CORPUSCULAR HEMOGLOBIN 27.3 pg (28.0-32.0); MEAN CORPUSCULAR VOLUME 80.6 fL (81.0-99.0); MEAN PLATELET VOLUME 8.5 fl (7.4-10.4); MONOCYTES % 7.6 % (2.0-8.0); NEUTROPHILS % 62.3 % (40.0-76.0); PLATELET 283 x1000/uL (130-400); RED BLOOD CELL COUNT 4.77 mill/uL (4.2-5.4); RED CELL DISTRIBUTION WIDTH 15.8 % (11.6-14.6)
[2018-07-11 06:44] LABS: CHLORIDE 102 mEq/L (98-107)
[2018-07-11 08:00] VITALS: BP 112/69
[2018-07-11] MEDS: ASPIRIN 81MG TABLET PO SCH (09:09)
[2018-07-11] MEDS: LEVETIRACETAM 500MG/5ML CUP PO SCH ×2 (09:09→22:13)
[2018-07-11] MEDS: DOCUSATE SODIUM 100MG CAPSULE PO SCH ×2 (09:09→17:26)
[2018-07-11] MEDS: ENOXAPARIN 30MG/0.3ML SYR SUBCUT SCH ×2 (09:09→22:17)
[2018-07-11] MEDS: METFORMIN HCL 500MG TABLET PO SCH ×2 (09:09→17:26)
[2018-07-11] MEDS: LAMOTRIGINE 25MG TABLET PO SCH ×2 (09:09→17:26)
[2018-07-11] MEDS: HYDROCHLOROTHIAZIDE 25MG TABLET PO SCH (09:09)
[2018-07-11] MEDS: OMEPRAZOLE 20MG CAPSULE EXTENDED RELEASE PO SCH (09:09)
[2018-07-11] MEDS: INSULIN LISPRO 100 UNITS/ML SUBCUT SCH ×4 (09:10→22:18)
[2018-07-11 12:00] VITALS: BP 103/68
[2018-07-11] MEDS: HYDROCODONE/APAP 7.5/325MG 1 TAB TABLET PO PRN (14:44)
[2018-07-11 16:00] VITALS: BP 101/59
[2018-07-11 20:00] VITALS: BP 116/68
[2018-07-11] MEDS ORDERED: INSULIN GLARGINE UD 100 UNITS/ML SYR SUBCUT SCH (22:00)
[2018-07-11] MEDS: AMITRIPTYLINE 10MG TABLET PO SCH (22:12)
[2018-07-12] VITALS: BP 100/70
[2018-07-12 04:00] VITALS: BP 112/68
[2018-07-12] MEDS: LORAZEPAM 2MG/ML CPJ IV PRN (05:11)
[2018-07-12] MEDS: BLOOD SUGAR DIAGNOSTIC STRIP TEST SCH ×2 (06:24→12:35)
[2018-07-12] MEDS: INSULIN LISPRO 100 UNITS/ML SUBCUT SCH ×2 (06:28→12:40)
[2018-07-12] MEDS ORDERED: GLIPIZIDE 5MG TABLET PO SCH (07:40)
[2018-07-12 08:00] VITALS: BP 111/68
[2018-07-12] MEDS: ENOXAPARIN 30MG/0.3ML SYR SUBCUT SCH (08:37)
[2018-07-12] MEDS: LEVETIRACETAM 500MG/5ML CUP PO SCH (08:37)
[2018-07-12] MEDS: HYDROCHLOROTHIAZIDE 25MG TABLET PO SCH (08:38)
[2018-07-12] MEDS: LAMOTRIGINE 25MG TABLET PO SCH (08:38)
[2018-07-12] MEDS: METFORMIN HCL 500MG TABLET PO SCH (08:38)
[2018-07-12] MEDS: ASPIRIN 81MG TABLET PO SCH (08:38)
[2018-07-12] MEDS: DOCUSATE SODIUM 100MG CAPSULE PO SCH (08:38)
[2018-07-12] MEDS ORDERED: FAMOTIDINE 20MG TABLET PO SCH (09:00)
[2018-07-12 12:00] VITALS: BP 125/76
[2018-07-12 13:56] VITALS: BP 115/70
== END 2018-07-12 16:38 | disposition home or self-care (01) | DRG 101 ==
LOC: ER 12:54 → 7WST 17:22 → EDBEDREQ 17:27 → ENRESERV 19:04 → 7WST 07-10 21:15
PROVIDERS: ADMIT Internal Medicine Nephrology; ATTEND Internal Medicine Nephrology
PROC: 4A10X4Z Monitoring of Central Nervous Electrical Activity, External Approach (ICD-10-PCS; principal; 2018-07-11)
DX: G40.804 Other epilepsy, intractable, without status epilepticus (principal); I10 Essential (primary) hypertension; E78.5 Hyperlipidemia, unspecified; E11.65 Type 2 diabetes mellitus with hyperglycemia; Z96.659 Presence of unspecified artificial knee joint; Z86.011 Personal history of benign neoplasm of the brain; Z87.891 Personal history of nicotine dependence; Z88.5 Allergy status to narcotic agent; Z88.6 Allergy status to analgesic agent; Z91.041 Radiographic dye allergy status; Z90.710 Acquired absence of both cervix and uterus; Z90.49 Acquired absence of other specified parts of digestive tract; Z91.013 Allergy to seafood; Z79.899 Other long term (current) drug therapy; Z79.82 Long term (current) use of aspirin
CPT/HCPCS: 36415; 71045; 80048; 82962; 84484; 93005; 96365; 96372; 96375; 99291; J1650; J1815; J1953; J2060; J2405; J7030

== ENCOUNTER → 2018-07-30 | Outpatient (CLI) | payer MEDICARE, MEDICAID ==
[~2018-07-30] MED LIST changes: -AM10 PO; +AMIT10TA6 PO; +AMLO10TA80 PO; -AMLO2.5T45 PO; +DIPH25CA83 PO; +DIPH28.34 TP; +DOCU-150 PO; +HYDR-4005 PO; +HYDR25TA PO; +IBUP-1653 PO; +LAMO50TA3 PO; +LEVE250T2 PO
== END | disposition home or self-care (01) ==
LOC: MRI 10:55
PROVIDERS: ATTEND Neurological Surgery
DX: I67.82 Cerebral ischemia (principal)
CPT/HCPCS: 70551

== ENCOUNTER → 2018-12-11 | Outpatient (CLI) | payer MEDICARE, MEDICAID ==
[~2018-12-11] MED LIST changes: -ASPI-1159 PO; +ASPI-1393 PO; -OMEP20CA10 PO; +OMEP20CA5 PO
== END | disposition home or self-care (01) ==
LOC: US 09:31
PROVIDERS: ATTEND Internal Medicine Nephrology
DX: M79.661 Pain in right lower leg (principal); R60.0 Localized edema
CPT/HCPCS: 93971

== ENCOUNTER → 2019-01-23 | Outpatient (CLI) | payer MEDICARE, MEDICAID | END | disposition home or self-care (01) | LOC: MRI 10:45 | PROVIDERS: ATTEND Neurological Surgery | DX: G31.9 Degenerative disease of nervous system, unspecified (principal); R90.82 White matter disease, unspecified | CPT/HCPCS: 70551 ==

== ENCOUNTER → 2019-01-27 | Outpatient (CLI) | payer MEDICARE, MEDICAID | END | disposition home or self-care (01) | LOC: MAMMO 10:10 | PROVIDERS: ATTEND Internal Medicine Nephrology | DX: Z12.31 Encounter for screening mammogram for malignant neoplasm of breast (principal); R92.1 Mammographic calcification found on diagnostic imaging of breast | CPT/HCPCS: 77067 ==

== ENCOUNTER → 2019-06-02 | Outpatient (CLI) | payer MEDICARE | END | disposition home or self-care (01) | LOC: RAD 11:36 | PROVIDERS: ATTEND Internal Medicine Nephrology | DX: R05 Cough (principal) | CPT/HCPCS: 71045 ==

== ENCOUNTER → 2020-03-11 | Outpatient (CLI) | payer MEDICARE ==
[~2020-03-11] MED LIST changes: -ASPI-1393 PO; +ASPI-1497 PO; +OMEP20CA14 PO; -OMEP20CA5 PO; +SIMV-43 PO; -SIMV20TA6 PO
== END | disposition home or self-care (01) ==
LOC: MRI 10:28
PROVIDERS: ATTEND Internal Medicine Nephrology
DX: M75.102 Unspecified rotator cuff tear or rupture of left shoulder, not specified as traumatic (principal); M25.712 Osteophyte, left shoulder; M19.012 Primary osteoarthritis, left shoulder
CPT/HCPCS: 73221

== ENCOUNTER → 2020-04-13 | Outpatient (CLI) | payer MEDICARE ==
[~2020-04-13] MED LIST changes: +ACET650T37 PO; +AMIT25TA9 PO; +AMLO5TAB88 PO; +INSU100I24 SQ; +INSU100I41 SUBCUT; +METF-414 PO
== END | disposition home or self-care (01) ==
LOC: RAD 12:09
PROVIDERS: ATTEND Internal Medicine Nephrology
DX: R06.02 Shortness of breath (principal)
CPT/HCPCS: 71045

== ENCOUNTER 2021-03-14 09:43 | Inpatient (IN) | payer MEDICARE, MEDICAID ==
[~2021-03-14] VITALS: Ht 162.6 cm; Wt 93.0 kg
[~2021-03-14 09:43] MED LIST changes: -AMIT10TA6 PO; -AMLO10TA80 PO; -DIPH28.34 TP; -LEVE250T2 PO
[2021-03-14] MEDS ORDERED: PROCHLORPERAZINE 10MG/2ML VIAL IV STA (10:19)
[2021-03-14] MEDS ORDERED: LORAZEPAM 2MG/ML CPJ IV ONE (10:30)
[2021-03-14] MEDS ORDERED: MECLIZINE 25MG TABLET PO ONE (10:30)
[2021-03-14 10:35] LABS: BASOPHILS % 0.3 % (0.0-2.0); EOSINOPHILS % 1.1 % (0.0-5.0); HEMATOCRIT. 37.3 % (36.0-48.0); HEMOGLOBIN. 12.5 g/dL (12.0-16.0); LYMPHOCYTES % 21.8 % (20.0-50.0); MEAN CORPUSCULAR HEMOGLOBIN 25.3 pg (28.0-32.0); MEAN CORPUSCULAR VOLUME 75.2 fL (81.0-99.0); MEAN PLATELET VOLUME 8.3 fl (7.4-10.4); NEUTROPHILS % 70.8 % (40.0-76.0); PLATELET 310 x1000/uL (130-400); RED BLOOD CELL COUNT 4.96 mill/uL (4.2-5.4); RED CELL DISTRIBUTION WIDTH 16.8 % (11.6-14.6)
[2021-03-14 10:43] LABS: CHLORIDE 106 mEq/L (98-107)
[2021-03-14] MEDS ORDERED: SODIUM CHLORIDE 0.9% 1,000 ML IV ONE (13:30)
[2021-03-14 21:00] VITALS: BP 124/92
[2021-03-14] MEDS ORDERED: DEXTROSE 50% WATER 50ML SYRINGE IV PRN (22:00)
[2021-03-14] MEDS ORDERED: DIPHENHYDRAMINE 25MG CAPSULE PO PRN (22:00)
[2021-03-14] MEDS: ATORVASTATIN CALCIUM 40MG TABLET PO SCH (23:28)
[2021-03-14] MEDS: AMITRIPTYLINE 25MG TABLET PO SCH (23:28)
[2021-03-14] MEDS: BLOOD SUGAR DIAGNOSTIC STRIP TEST SCH (23:28)
[2021-03-14] MEDS: INSULIN LISPRO 100 UNITS/ML SUBCUT SCH (23:29)
[2021-03-14] MEDS: ENOXAPARIN 40MG/0.4ML SYR SUBCUT SCH (23:29)
[2021-03-15] VITALS (7 sets, daily range): BP systolic 120–142; BP diastolic 69–76
[2021-03-15] MEDS: BLOOD SUGAR DIAGNOSTIC STRIP TEST SCH ×4 (07:40→20:35)
[2021-03-15] MEDS: INSULIN LISPRO 100 UNITS/ML SUBCUT SCH ×4 (07:40→20:35)
[2021-03-15] MEDS: AMLODIPINE 10MG TABLET PO SCH (08:43)
[2021-03-15] MEDS: ASPIRIN 81MG TABLET PO SCH (08:43)
[2021-03-15] MEDS: DOCUSATE SODIUM 100MG CAPSULE PO SCH ×2 (08:43→18:03)
[2021-03-15] MEDS: LAMOTRIGINE 25MG TABLET PO SCH ×2 (08:43→18:03)
[2021-03-15] MEDS: METFORMIN HCL 500MG TABLET PO SCH ×2 (08:43→18:02)
[2021-03-15] MEDS: OMEPRAZOLE 20MG CAPSULE EXTENDED RELEASE PO SCH (08:43)
[2021-03-15 09:20] LABS: BASOPHILS % 0.8 % (0.0-2.0); HEMATOCRIT. 36.4 % (36.0-48.0); HEMOGLOBIN. 11.8 g/dL (12.0-16.0); LYMPHOCYTES % 28.4 % (20.0-50.0); MEAN CORPUSCULAR HEMOGLOBIN 24.9 pg (28.0-32.0); MEAN CORPUSCULAR VOLUME 76.6 fL (81.0-99.0); MEAN PLATELET VOLUME 8.2 fl (7.4-10.4); MONOCYTES % 5.1 % (2.0-8.0); NEUTROPHILS % 63.7 % (40.0-76.0); PLATELET 287 x1000/uL (130-400); RED BLOOD CELL COUNT 4.75 mill/uL (4.2-5.4)
[2021-03-15 09:23] LABS: CHLORIDE 109 mEq/L (98-107)
[2021-03-15 09:35] LABS: LDL CHOLESTEROL 101 mg/dL (5-100)
[2021-03-15 09:38] LABS: HDL CHOLESTEROL 45 mg/dL (40-59)
[2021-03-15] MEDS: ACETAMINOPHEN 325MG TABLET PO PRN ×2 (14:54→23:47)
[2021-03-15] MEDS: AMITRIPTYLINE 25MG TABLET PO SCH (20:53)
[2021-03-15] MEDS: ATORVASTATIN CALCIUM 40MG TABLET PO SCH (20:53)
[2021-03-15] MEDS: ENOXAPARIN 40MG/0.4ML SYR SUBCUT SCH (20:54)
[2021-03-15] MEDS ORDERED: ONDANSETRON HCL 4MG TABLET PO PRN (23:45)
[2021-03-16] VITALS: BP 118/80
[2021-03-16 04:00] VITALS: BP 137/74
[2021-03-16] MEDS: OMEPRAZOLE 20MG CAPSULE EXTENDED RELEASE PO SCH (06:45)
[2021-03-16] MEDS: BLOOD SUGAR DIAGNOSTIC STRIP TEST SCH ×4 (06:45→20:50)
[2021-03-16 08:00] VITALS: BP 120/78
[2021-03-16] MEDS: AMLODIPINE 10MG TABLET PO SCH (09:00)
[2021-03-16] MEDS: LAMOTRIGINE 25MG TABLET PO SCH ×2 (09:00→17:45)
[2021-03-16] MEDS: ASPIRIN 81MG TABLET PO SCH (09:00)
[2021-03-16] MEDS: DOCUSATE SODIUM 100MG CAPSULE PO SCH ×2 (09:00→17:45)
[2021-03-16] MEDS: METFORMIN HCL 500MG TABLET PO SCH ×2 (09:01→17:45)
[2021-03-16] MEDS: INSULIN LISPRO 100 UNITS/ML SUBCUT SCH ×4 (09:07→20:50)
[2021-03-16] MEDS ORDERED: GADOTERATE MEGLUMINE 5 MMOL/10 ML VIAL IV ONE (09:51)
[2021-03-16 10:21] LABS: CLARITY URINE CLEAR (CLEAR); COLOR URINE YELLOW (YELLOW); KETONES URINE NEGATIVE (NEGATIVE); LEUKOCYTE ESTERASE URINE NEGATIVE (NEGATIVE); NITRITE URINE NEGATIVE (NEGATIVE); OCCULT BLOOD URINE NEGATIVE (NEGATIVE); PROTEIN URINE NEGATIVE (NEGATIVE); SPECIFIC GRAVITY URINE 1.017 (1.005-1.030); UROBILINOGEN URINE 0.2 E.U./dL (0.2-1.0)
[2021-03-16 12:08] VITALS: BP 130/83
[2021-03-16 16:00] VITALS: BP 129/77
[2021-03-16] MEDS: MECLIZINE 25MG TABLET PO PRN (17:46)
[2021-03-16 20:00] VITALS: BP 113/76
[2021-03-16] MEDS: ENOXAPARIN 30MG/0.3ML SYR SUBCUT SCH (20:52)
[2021-03-16] MEDS: ATORVASTATIN CALCIUM 40MG TABLET PO SCH (20:52)
[2021-03-16] MEDS: AMITRIPTYLINE 25MG TABLET PO SCH (20:52)
[2021-03-17] VITALS: BP 125/75
[2021-03-17] MEDS: MECLIZINE 25MG TABLET PO PRN (03:01)
[2021-03-17 04:00] VITALS: BP 120/74
[2021-03-17 04:07] LABS: FOLICLE STIMULATING HORMONE 36.3 mIU/mL (.); PROLACTIN 16.1 ng/mL (4.8-23.3)
[2021-03-17] MEDS: BLOOD SUGAR DIAGNOSTIC STRIP TEST SCH (07:47)
[2021-03-17] MEDS: INSULIN LISPRO 100 UNITS/ML SUBCUT SCH (07:47)
[2021-03-17 08:00] VITALS: BP 139/82
[2021-03-17] MEDS ORDERED: FAMOTIDINE 20MG TABLET PO SCH (09:00)
[2021-03-17] MEDS: ASPIRIN 81MG TABLET PO SCH (09:30)
[2021-03-17] MEDS: LAMOTRIGINE 25MG TABLET PO SCH (09:30)
[2021-03-17] MEDS: METFORMIN HCL 500MG TABLET PO SCH (09:30)
[2021-03-17] MEDS: DOCUSATE SODIUM 100MG CAPSULE PO SCH (09:30)
[2021-03-17] MEDS: ENOXAPARIN 30MG/0.3ML SYR SUBCUT SCH (09:31)
[2021-03-17] MEDS: AMLODIPINE 10MG TABLET PO SCH (09:47)
[2021-03-17 11:21] VITALS: BP 139/82
[2021-03-17 12:00] VITALS: BP 145/86
== END 2021-03-17 13:37 | disposition home or self-care (01) | DRG 74 ==
LOC: ER 09:43 → 7WST 15:03 → ENRESERV 19:56 → 6WST 03-15 13:23
PROVIDERS: ADMIT Internal Medicine; ATTEND Internal Medicine
PROC: 4A10X4Z Monitoring of Central Nervous Electrical Activity, External Approach (ICD-10-PCS; principal; 2021-03-16)
DX: G90.8 Other disorders of autonomic nervous system (principal); E11.9 Type 2 diabetes mellitus without complications; I10 Essential (primary) hypertension; E66.9 Obesity, unspecified; Z96.659 Presence of unspecified artificial knee joint; G93.89 Other specified disorders of brain; Z20.822 Contact with and (suspected) exposure to COVID-19; Z96.651 Presence of right artificial knee joint; Z96.612 Presence of left artificial shoulder joint; Z68.35 Body mass index [BMI] 35.0-35.9, adult; Z86.011 Personal history of benign neoplasm of the brain; Z79.899 Other long term (current) drug therapy; Z88.5 Allergy status to narcotic agent; Z91.013 Allergy to seafood; Z88.8 Allergy status to other drugs, medicaments and biological substances; Z91.041 Radiographic dye allergy status; Z79.4 Long term (current) use of insulin; Z90.49 Acquired absence of other specified parts of digestive tract; Z90.710 Acquired absence of both cervix and uterus
CPT/HCPCS: 36415; 70551; 70553; 71045; 80053; 80061; 81003; 82962; 83001; 83036; 83605; 84146; 84443; 84484; 85025; 93005; 93306; 95816; 99285; A9577; J0780; J1650; J1815; J2060; J7030; J8597; Q0162; U0003; U0005

== ENCOUNTER 2024-01-18 14:48 | Emergency (ER) | payer MEDICARE, MEDICAID ==
[~2024-01-18] VITALS: Ht 165.1 cm; Wt 86.0 kg
[~2024-01-18 14:48] MED LIST changes: +ACET-3163 PO; -ACET650T37 PO
[2024-01-18 14:56] VITALS: O2SAT 100
[2024-01-18 15:24] LABS: BASOPHILS % 0.5 % (0.0-2.0); DIFFERENTIAL COMMENT 0; EOSINOPHILS % 3.1 % (0.0-5.0); HEMATOCRIT. 35.9 % (36.0-48.0); HEMOGLOBIN. 11.8 g/dL (12.0-16.0); LYMPHOCYTES % 21.5 % (20.0-50.0); MEAN CORPUSCULAR HGB CONC 32.8 g/dL (31.0-37.0); MEAN CORPUSCULAR VOLUME 76.3 fL (81.0-99.0); MEAN PLATELET VOLUME 7.4 fl (7.4-10.4); MONOCYTES % 7.8 % (2.0-8.0); NEUTROPHILS % 67.1 % (40.0-76.0); PLATELET 426 x1000/uL (130-400); RED BLOOD CELL COUNT 4.71 mill/uL (4.2-5.4); RED CELL DISTRIBUTION WIDTH 16.1 % (11.6-14.6); WHITE BLOOD COUNT 10.5 x1000/uL (4.5-11.0)
[2024-01-18 15:30] LABS: CHLORIDE 104 mEq/L (98-107); POTASSIUM 3.3 mEq/L (3.5-5.1); SODIUM 141 mEq/L (136-145)
[2024-01-18 15:31] LABS: CALCIUM 10.2 mg/dL (8.7-10.4); CARBON DIOXIDE 28 mEq/L (21-32)
[2024-01-18 15:36] LABS: CREATININE 0.9 mg/dL (0.6-1.0); GLUCOSE 88 mg/dL (70-105); PARTIAL THROMBOPLASTIN TIME 27.8 sec (23.4-31.0); PROTHROMBIN TIME 11.1 sec (9.6-11.0); UREA NITROGEN BLOOD 11 mg/dL (9-23)
[2024-01-18 15:38] LABS: TROPONIN I HIGH SENSITIVITY 9 ng/L (3.0-34)
[2024-01-18 17:45] LABS: TROPONIN I HIGH SENSITIVITY 9 ng/L (3.0-34)
[2024-01-18] MEDS ORDERED: MUPI1OIN4 TP (18:11)
[2024-01-18 18:28] VITALS: BP 147/72; PULSE 96; RESP 18; TEMP 98.2
== END 2024-01-18 18:29 | disposition home or self-care (01) ==
LOC: ER 14:48 → CANBEDREQ 17:51 → ER 18:29
DX: S00.31XA Abrasion of nose, initial encounter (principal); E11.9 Type 2 diabetes mellitus without complications; I10 Essential (primary) hypertension; K80.20 Calculus of gallbladder without cholecystitis without obstruction; Z90.49 Acquired absence of other specified parts of digestive tract; Z90.710 Acquired absence of both cervix and uterus; Z96.653 Presence of artificial knee joint, bilateral; Z88.5 Allergy status to narcotic agent; Z88.8 Allergy status to other drugs, medicaments and biological substances; Z91.013 Allergy to seafood; Z91.040 Latex allergy status; W18.39XA Other fall on same level, initial encounter; Y93.89 Activity, other specified; Y92.89 Other specified places as the place of occurrence of the external cause; Y99.8 Other external cause status
CPT/HCPCS: 36415; 71045; 73660; 80048; 83880; 84484; 85025; 93005; 99285

== ENCOUNTER 2025-03-05 12:20 | Emergency (ER) | payer MEDICAID ==
[~2025-03-05] VITALS: Ht 170.2 cm; Wt 84.0 kg
[~2025-03-05 12:20] MED LIST changes: +AMIT25TA21 PO; -AMIT25TA9 PO; -DOCU-150 PO; +DOCU-422 PO; +MUPI1OIN4 TP
[2025-03-05 12:33] VITALS: TEMP 36.9; O2SAT 100
[2025-03-05] MEDS ORDERED: OCUFLX EACHEYE (14:01)
[2025-03-05] MEDS: TETRACAINE 0.5% OPHTH DROPS 4ML BOTHEYE ONE (14:11)
[2025-03-05] MEDS: FLUORESCEIN SODIUM 1MG/STRIP BOTHEYE ONE (14:11)
[2025-03-05 14:16] VITALS: BP 119/66; PULSE 80; RESP 16; O2SAT 100
== END 2025-03-05 14:19 | disposition home or self-care (01) ==
LOC: ER 12:20
DX: H10.9 Unspecified conjunctivitis (principal); E11.9 Type 2 diabetes mellitus without complications; I10 Essential (primary) hypertension; Z90.49 Acquired absence of other specified parts of digestive tract; Z90.710 Acquired absence of both cervix and uterus; Z91.013 Allergy to seafood; Z96.659 Presence of unspecified artificial knee joint; Z79.899 Other long term (current) drug therapy; Z88.5 Allergy status to narcotic agent; Z88.6 Allergy status to analgesic agent; Z88.8 Allergy status to other drugs, medicaments and biological substances
CPT/HCPCS: 99283